=== PATIENT | female | born 1965 | race Caucasian/White ===

== ENCOUNTER 2019-01-22 17:44 | Outpatient (CLI) ==
--- NOTE | 2019-01-23 12:21 | DI ---
Exam: Single view pelvis with additional view of each hip. Date: 01/22/2019. Comparison: None. HISTORY: Left hip deformity. FINDINGS: The soft tissues are within normal limits. The mineralization is normal. Degenerative ch anges are present at the lumbosacral junction but incompletely visualized. The sacroiliac joints are normal. The pelvic ring is intact. There is cephalad migration of the left femoral head with impac tion into the acetabular roof with remodeling of the articular surfaces, subchondral cysts, osteophyt ic spurring and subchondral sclerosis. The femoral head is in the acetabulum however. The right hip appears normal. Impression: No acute osseous abnormality. 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 If more definitive evaluation is needed then MRI would be suggested.
--- NOTE | 2019-01-23 12:21 | DI ---
Exam: Three-view left knee. Date: 01/22/2019. Comparison: None. HISTORY: Left knee deformity. FINDINGS: The soft tissues are within normal limits. The mineralization is normal. There is no eff usion. The bones are intact and the joint spaces are preserved. Impression: No acute osseous abnormality in the left knee.
== END 2019-01-22 17:45 | disposition home or self-care (01) ==
LOC: RAD 17:44
PROVIDERS: ATTEND Nurse Practitioner
DX: M21.952 Unspecified acquired deformity of left thigh (principal); M21.962 Unspecified acquired deformity of left lower leg

== ENCOUNTER 2019-03-13 08:40 | Emergency (ER) ==
[2019-03-13 08:52] VITALS: BP 167/92; TEMP 95.8; BMI 22.9
--- NOTE | 2019-03-13 09:04 | ED.PDOC ---
General ED Provider: Dr. STEPHANIE GREENE Chief Complaint: Tooth Problem Stated Complaint: dental fracure and caries-pain Time Seen by Physician: 08:55 Mode of Arrival: Walk-In Information Source: Patient Exam Limitations: No limitations Nursing and Triage Documentation Reviewed and Agree: Yes Does patient meet sepsis criteria?: No System Inflammatory Response Syndrome: Not Applicable Sepsis Protocol: For patient's 13 years and over: Temp is 96.8 and below OR 101 and greater Pulse >90 BPM Resp >20/minute Acutely Altered Mental Status Are patient's symptoms suggestive of a new infection, such as: -Pneumonia -Skin, Soft Tissue -Endocarditis -UTI -Bone, Joint Infection -Implantable Device -Acute Abdominal Infection -Wound Infection -Meningitis -Blood Stream Catheter Infection -Unknown EENT Complaint Exam - Dental/Oral Complaint/Exam Onset/Duration: dental caries in several teeth.Huretibg right upper incisor Symptoms Are: Still present Timing: Constant Initial Severity: Moderate Current Severity: Moderate Location: right upper incisor Character: Reports: Aching Aggravating: Reports: Cold Alleviating: Reports: None Associated Signs and Symptoms: Reports: Swelling Related History: Reports: Similar episode Cardiac Risk Factors: Reports: Hypertension Tooth Findings: Present: Percussion tenderness, Gross caries, Dental fracture Cervical Lymphadenopathy Present: No Facial Swelling Present: Yes Bleeding Present: No Septal Hematoma: No Foreign Body Present: No Dysphagia Present: No Drooling Present: No Asymmetrical Tonsillar Swelling Present: No Uvula Midline: No Radha-tonsillar Fluctuence: No Trismus Present: No Palatal Petechiae Present: No Scarlatinaform Rash Present: No Differential Diagnoses: Dental Abcess, Dental Caries, Fractured Tooth, Gingivitis, Odontogenic Pain Review of Systems - Review Of Systems Constitutional: Reports: No symptoms Eyes: Reports: No symptoms Ears, Nose, Mouth, Throat: Reports: No symptoms Respiratory: Reports: No symptoms Cardiac: Reports: No symptoms GI: Reports: No symptoms : Reports: No symptoms Musculoskeletal: Reports: No symptoms Skin: Reports: No symptoms Neurological: Reports: No symptoms Endocrine: Reports: No symptoms Hematologic/Lymphatic: Reports: No symptoms All Other Systems: Reviewed and Negative Past Medical History - Past Medical History Previously Healthy: Yes Endocrine: Reports: None Cardiovascular: Reports: None Respiratory: Reports: None Hematological: Reports: None Gastrointestinal: Reports: None Genitourinary: Reports: None Neuro/Psych: Reports: None Musculoskeletal: Reports: None Cancer: Reports: None Last Menstrual Period: March of last year - Surgical History General Surgical History: Reports: None - Family History Family History: Reports: None - Social History Smoking Status: Current every day smoker Hx Substance Use: No Alcohol Screening: Occasionally - Immunizations Tetanus Shot up to Date: No Physical Exam - Physical Exam Appearance: Well-appearing Ill-appearing: None Pain Distress: Moderate Eyes: ANGELICA, EOMI, Conjunctiva clear ENT: Ears normal, Nose normal Neck: Supple Respiratory: Airway patent, Breath sounds clear, Breath sounds equal Cardiovascular: RRR, Pulses normal, No rub, No murmur GI/: Soft, Nontender Musculoskeletal: Normal strength, ROM intact, No edema Skin: Warm, Dry Neurological: Sensation intact, Alert, Oriented Psychiatric: Affect appropriate Critical Care Note - Critical Care Note Total Time (mins): 0 Course - Course Vital Signs: Temp Pulse Resp BP Pulse Ox 03/13/19 08:43 95.8 F L 59 L 16 167/92 H 97 Departure - Departure Time of Disposition: 10:09 Disposition: HOME SELF-CARE Discharge Problem: Pain, dental Instructions: Dry Mouth (ED) Condition: Good Pt referred to PMD for follow-up: Yes (pt has a dental appointment scheduled) IPMP verified?: No Allergies/Adverse Reactions: Allergies aspirin Adverse Reaction (Verified 03/13/19 08:59) bee venom protein (honey bee) Adverse Reaction (Verified 03/13/19 08:59) codeine Adverse Reaction (Verified 03/13/19 08:59) Home Medications: Ambulatory Orders 1 [No Reported Medications] 03/13/19 Disposition Discussed With: Patient
[2019-03-13] MEDS ORDERED: AUGMENTIN 875-125 MG TAB PO STA ×2 (09:09→10:03)
[2019-03-13] MEDS ORDERED: ULTRAM PO STA (09:13)
[2019-03-13] MEDS ORDERED: MOTRIN PO STA (10:02)
== END 2019-03-13 10:27 | disposition home or self-care (01) ==
LOC: ED 08:40
DX: K02.9 Dental caries, unspecified (principal); K08.89 Other specified disorders of teeth and supporting structures; Z72.0 Tobacco use
CPT/HCPCS: 99282